=== PATIENT | male | born 1965 | race Native Hawaiian/Other Pacific Islander ===

== ENCOUNTER 2017-10-17 15:52 | Observation (INO) | payer OTHER ==
[~2017-10-17] VITALS: Ht 185.4 cm; Wt 142.0 kg
[2017-10-17 16:00] VITALS: BP 86/54; TEMP 97.8
[2017-10-17 17:03] LABS: PLATELET COUNT 213 K/uL (142-355)
[2017-10-17 17:19] LABS: POTASSIUM 4.4 mmol/L (3.6-5.2)
[2017-10-17 17:50] VITALS: BP 94/53
[2017-10-17 18:45] VITALS: BP 89/50
[2017-10-17] MEDS ORDERED: ASPIRIN 81 LOW81 MG PO (20:18)
[2017-10-17] MEDS ORDERED: TRAZ100T PO (20:18)
[2017-10-17] MEDS ORDERED: BACLOFEN20 MG PO (20:19)
[2017-10-17] MEDS ORDERED: ARIPIPRAZOLE15 MG PO (20:20)
[2017-10-17] MEDS ORDERED: BENZ1TAB43 PO (20:21)
[2017-10-17] MEDS ORDERED: GRALISE600 MG PO (20:22)
[2017-10-17] MEDS ORDERED: LOVASTATIN40 MG PO (20:22)
[2017-10-17] MEDS ORDERED: LISI20TA31 PO (20:25)
[2017-10-17] MEDS ORDERED: CELEXA40 MG PO (20:26)
[2017-10-17] MEDS ORDERED: FORTAMET1000 MG PO (20:26)
[2017-10-17] MEDS ORDERED: TRAM50TA PO (20:27)
[2017-10-18 01:44] VITALS: BP 111/69; TEMP 98; Ht 185.4 cm; Wt 142.0 kg
[2017-10-18 04:00] VITALS: BP 90/50; TEMP 97.7
[2017-10-18 06:00] LABS: PLATELET COUNT 173 K/uL (142-355)
[2017-10-18 06:19] LABS: POTASSIUM 3.7 mmol/L (3.6-5.2)
[2017-10-18 08:00] VITALS: BP 101/61; TEMP 97.6
[2017-10-18 09:04] LABS: PLATELET COUNT 175 K/uL (142-355)
[2017-10-18 09:41] LABS: POTASSIUM 4.4 mmol/L (3.6-5.2)
[2017-10-18 12:00] VITALS: BP 108/62; TEMP 97.8
[2017-10-18] MEDS ORDERED: HYDROCHLOROT12.5 M1 PO (13:49)
[2017-10-18] MEDS ORDERED: LISI20TA11 PO (15:09)
== END 2017-10-18 15:38 | disposition home or self-care (01) ==
LOC: ED 15:52 → MED/SURG 20:11
PROVIDERS: Internal Medicine; ADMIT Specialist
DX: E86.0 Dehydration (principal); E11.9 Type 2 diabetes mellitus without complications; I10 Essential (primary) hypertension; G20 Parkinson's disease; F31.89 Other bipolar disorder; I95.89 Other hypotension; E78.4 Other hyperlipidemia; E66.01 Morbid (severe) obesity due to excess calories; R55 Syncope and collapse
CPT/HCPCS: 36415; 36591; 80048; 80053; 81000; 82436; 82533; 82550; 82553; 82570; 83036; 83735; 84100; 84133; 84300; 84484; 85027; 93005; 96360; 96361; 99220; 99284; G0378; J0515

== ENCOUNTER 2018-05-02 13:28 | Emergency (ER) | payer OTHER ==
[~2018-05-02] VITALS: Ht 185.4 cm; Wt 149.7 kg
[~2018-05-02 13:28] MED LIST: ARIPIPRAZOLE15 MG PO; ASPIRIN 81 LOW81 MG PO; BACLOFEN20 MG PO; BENZ1TAB43 PO; CELEXA40 MG PO; FORTAMET1000 MG PO; GRALISE600 MG PO; HYDROCHLOROT12.5 M1 PO; LISI20TA11 PO; LISI20TA31 PO; LOVASTATIN40 MG PO; TRAM50TA PO; TRAZ100T PO
[2018-05-02 15:49] VITALS: BP 130/80; TEMP 97
== END 2018-05-02 15:49 | disposition home or self-care (01) ==
LOC: ED 13:28
DX: S93.492A Sprain of other ligament of left ankle, initial encounter (principal); X50.1XXA Overexertion from prolonged static or awkward postures, initial encounter; Y92.89 Other specified places as the place of occurrence of the external cause
CPT/HCPCS: 99283